=== PATIENT | female | born 1985 | race Caucasian/White ===

== ENCOUNTER 2021-07-04 12:12 | Emergency (ER) | payer MEDICAID ==
[~2021-07-04] VITALS: Ht 160 cm; Wt 45.4 kg
[2021-07-04 12:14] VITALS: BP 119/61
[2021-07-04] MEDS ORDERED: TRAMADOL HCL 50 MG TABLET PO ONE (13:00)
[2021-07-04] MEDS ORDERED: ACETAMINOPHEN 500 MG TABLET PO ONE (13:00)
[2021-07-04 14:17] VITALS: BP 118/66
== END 2021-07-04 14:21 | disposition home or self-care (01) ==
LOC: EDH 12:12
DX: S69.92XA Unspecified injury of left wrist, hand and finger(s), initial encounter (principal); Z88.6 Allergy status to analgesic agent; Z88.0 Allergy status to penicillin; W01.0XXA Fall on same level from slipping, tripping and stumbling without subsequent striking against object, initial encounter; Y93.89 Activity, other specified; Y92.89 Other specified places as the place of occurrence of the external cause; Y99.8 Other external cause status
CPT/HCPCS: 29125; 73130

== ENCOUNTER 2021-08-07 16:08 | Emergency (ER) | payer MEDICAID ==
[~2021-08-07] VITALS: Ht 162.6 cm; Wt 47.6 kg
[2021-08-07 16:10] VITALS: BP 115/70
[2021-08-07] MEDS ORDERED: ACETAMINOPHEN 500 MG TABLET PO ONE (16:30)
[2021-08-07] MEDS ORDERED: ACET-66 PO (17:15)
[2021-08-07 17:55] VITALS: BP 110/65
== END 2021-08-07 17:50 | disposition home or self-care (01) ==
LOC: EDH 16:08
DX: S60.221A Contusion of right hand, initial encounter (principal); Z88.0 Allergy status to penicillin; Z88.6 Allergy status to analgesic agent; V49.49XA Driver injured in collision with other motor vehicles in traffic accident, initial encounter; Y93.89 Activity, other specified; Y92.89 Other specified places as the place of occurrence of the external cause; Y99.8 Other external cause status
CPT/HCPCS: 73130